=== PATIENT | female | born 1960 | race Caucasian/White ===

== ENCOUNTER 2021-02-14 07:00 | Inpatient (IN) ==
[2021-02-14] MEDS ORDERED: 0.9 % Sodium Chloride 1,000 ML IVC ONE (07:09)
[2021-02-14] MEDS ORDERED: Ondansetron 4 MG/2 ML VIAL IVP ONE (07:09)
[2021-02-14] MEDS ORDERED: Isovue-370 500 ML BOTTLE IVP ONE (07:10)
[2021-02-14] MEDS ORDERED: *HR* FentaNYL (PF) 100 MCG/2 ML VIAL IVP ONE (07:10)
[2021-02-14 07:51] LABS: Basophils % 0.1 %; Eosinophils % 0.2 %; Hematocrit 43.5 % (35.3-44.9); Hemoglobin 13.8 g/dL (11.5-15.4); Immature Granulocytes % 0.2 % (0-4); Lymphocytes # 0.9 K/mcL (0.6-4.6); Lymphocytes % 10.4 %; Mean Corpuscular HGB Conc 31.7 g/dL (31.6-35.5); Mean Corpuscular Hemoglobin 27.5 pg (28.0-33.3); Mean Corpuscular Volume 86.8 fL (83.0-100.0); Mean Platelet Volume 11.5 fL (9.4-12.4); Monocytes # 0.4 K/mcL (0.0-1.3); Monocytes % 4.2 %; Neutrophils # 7.3 K/mcL (1.6-8.9); Platelet Count 426 K/mcL (140-400); Red Blood Count 5.01 M/mcL (3.82-4.97); Red Cell Distribution Width 14.8 % (11.5-14.5); Segmented Neutrophils % 84.9 %; White Blood Count 8.6 K/mcL (4.3-11.1)
[2021-02-14 08:16] LABS: Albumin 3.7 g/dL (3.5-5.7); Albumin/Globulin Ratio 1.2 (1.1-2.2); Bilirubin,Indirect 0.3 mg/dL (0.0-1.0); Bilirubin,Total 0.3 mg/dL (0.3-1.0); Calcium 9.4 mg/dL (8.6-10.3); Globulin 3.2 g/dL (2.4-3.5); Potassium 4.6 mEq/L (3.5-5.1); Total Protein 6.9 g/dL (6.4-8.9); Troponin I 0.1 ng/mL (< 0.04)
[2021-02-14] MEDS ORDERED: Aspirin 81 MG TAB.CHEW PO ONE (08:19)
[2021-02-14 08:27] LABS: Amorphous Sediment,Urine Few per hpf (None-Few); Bacteria,Urine Few per hpf (None-Few); Bilirubin,Urine Negative (Negative); Blood,Urine Small (Negative); Clarity,Urine Turbid (Clear); Color,Urine Yellow (Yellow); Glucose,Urine (UA) 70 mg/dL (Normal); Ketones,Urine Negative (Negative); Leukocyte Esterase,Urine Negative (Negative); Mucus,Urine Few per lpf (None-Few); Nitrite,Urine Negative (Negative); Protein,Urine >=300 mg/dL (Neg-Trace); Specific Gravity,Urine 1.022 (1.010-1.025); Squamous Epithelial Cell,Urine Few per hpf (None-Few); Urobilinogen,Urine Normal (Normal)
[2021-02-14] MEDS ORDERED: Vancomycin 1,750 MG/517.5 ML IV.SOLN IVPB ONE (09:43)
[2021-02-14] MEDS ORDERED: Cefepime HCl 1,000 MG in 0.9 % Sodium Chloride Mini Bag 100 ML IVPB ONE (09:43)
[2021-02-14] MEDS ORDERED: Naloxone 0.4 MG/ML INJ IVP PRN ×2 (10:22→15:26)
[2021-02-14] MEDS ORDERED: *HR* HYDROmorphone (PF) 1 MG/ML SYRINGE IVP PRN ×2 (10:24→12:04)
[2021-02-14] MEDS ORDERED: 0.9 % Sodium Chloride 1,000 ML IVC SCH (10:30)
[2021-02-14] MEDS ORDERED: Lidocaine -MPF 2% 2 ML VIAL ONE (12:04)
[2021-02-14] MEDS ORDERED: *HR* Meperidine 25 MG/ML SYRINGE IVP PRN (12:04)
[2021-02-14] MEDS ORDERED: Ondansetron 4 MG/2 ML VIAL IVP PRN (12:04)
[2021-02-14] MEDS ORDERED: *HR* FentaNYL (PF) 100 MCG/2 ML VIAL ONE ×2 (12:04→13:28)
[2021-02-14] MEDS ORDERED: *HR* Rocuronium Bromide 50 MG/5 ML VIAL ONE (12:05)
[2021-02-14] MEDS ORDERED: *HR* Succinylcholine 200 MG/10 ML VIAL IVP ONE (12:08)
[2021-02-14] MEDS ORDERED: *HR* Propofol 200 MG/20 ML VIAL IVP ONE (12:08)
[2021-02-14] MEDS ORDERED: *HR* Midazolam HCl 2 MG/2 ML VIAL ONE (12:08)
[2021-02-14] MEDS ORDERED: EPHEDrine 50 MG/ML VIAL ONE (13:02)
[2021-02-14] MEDS ORDERED: *HR* PHENYLEPHRINE 1,000 MCG/10 ML SYRINGE IVP ONE (13:14)
[2021-02-14] MEDS ORDERED: Neostigmine Methylsulfate 3 MG/3 ML SYRINGE ONE (13:34)
[2021-02-14] MEDS ORDERED: Ondansetron 4 MG/2 ML VIAL ONE (13:34)
[2021-02-14] MEDS ORDERED: Dexamethasone 4 MG/ML VIAL ONE (13:34)
[2021-02-14] MEDS ORDERED: Acetaminophen IV 1,000 MG/100 ML BAG IVPB ONE (13:50)
[2021-02-14] MEDS ORDERED: *HR* Heparin 5,000 UNIT/ML VIAL SQ SCH (14:00)
[2021-02-14] MEDS ORDERED: MetroNIDAZOLE 500 MG/100 ML 500 MG/100 ML BAG IVPB SCH (16:00)
[2021-02-14] MEDS: MetroNIDAZOLE 500 MG/100 ML 500 MG/100 ML BAG IVPB SCH (16:45)
[2021-02-14] MEDS: 0.9 % Sodium Chloride 1,000 ML IVC SCH (18:05)
[2021-02-14] MEDS: *HR* HYDROmorphone (PF) 1 MG/ML SYRINGE IVP PRN (20:00)
[2021-02-14] MEDS: *HR* Heparin 5,000 UNIT/ML VIAL SQ SCH (22:50)
[2021-02-15] MEDS: MetroNIDAZOLE 500 MG/100 ML 500 MG/100 ML BAG IVPB SCH ×4 (01:00→23:14)
[2021-02-15] MEDS: *HR* HYDROmorphone (PF) 1 MG/ML SYRINGE IVP PRN (02:16)
[2021-02-15 04:34] LABS: Basophils % 0.2 %; Hematocrit 36.7 % (35.3-44.9); Immature Granulocytes % 0.4 % (0-4); Lymphocytes # 1.6 K/mcL (0.6-4.6); Lymphocytes % 10.7 %; Mean Corpuscular HGB Conc 31.9 g/dL (31.6-35.5); Mean Corpuscular Volume 87.8 fL (83.0-100.0); Mean Platelet Volume 11.2 fL (9.4-12.4); Monocytes # 0.6 K/mcL (0.0-1.3); Monocytes % 3.8 %; Neutrophils # 12.4 K/mcL (1.6-8.9); Platelet Count 464 K/mcL (140-400); Red Blood Count 4.18 M/mcL (3.82-4.97); Red Cell Distribution Width 15.2 % (11.5-14.5); Segmented Neutrophils % 84.9 %
[2021-02-15 04:36] LABS: Hemoglobin 11.7 g/dL (11.5-15.4); White Blood Count 14.6 K/mcL (4.3-11.1)
[2021-02-15 04:51] LABS: Calcium 8.3 mg/dL (8.6-10.3); Potassium 5.1 mEq/L (3.5-5.1)
[2021-02-15] MEDS: 0.9 % Sodium Chloride 1,000 ML IVC SCH (05:18)
[2021-02-15] MEDS: *HR* Heparin 5,000 UNIT/ML VIAL SQ SCH ×2 (05:20→21:21)
[2021-02-15] MEDS ORDERED: Dextrose Gel 15 GM/37.5 ML TUBE PO PRN ×2 (08:00)
[2021-02-15] MEDS ORDERED: D5% in Water 1,000 ML IVC PRN (08:00)
[2021-02-15] MEDS ORDERED: *HR* Dextrose 50 % in Water (Vial) 50 ML VIAL IVP PRN (08:00)
[2021-02-15] MEDS ORDERED: D5% in Water 1,000 ML IVC ONE (08:09)
[2021-02-15] MEDS ORDERED: 0.9 % Sodium Chloride 250 ML IVC ONE (08:18)
[2021-02-15] MEDS: D5% in Lactated Ringers 1,000 ML IVC SCH ×3 (08:21→21:20)
[2021-02-15 11:42] LABS: ABG Base Excess -7 mEq/L (-2 to 3); ABG HCO3 18 mEq/L (21-27); ABG Oxygen Saturation 91 % (95-98); ABG PCO2 31 mmHg (35-45); ABG PH 7.37 pH Units (7.32-7.45); ABG PO2 61 mmHg (85-104); ABG TCO2 19 mEq/L (20-26)
[2021-02-15] MEDS: Insulin LISPRO 300 UNITS/3 ML VIAL SUBQ SCH ×2 (12:03→18:00)
[2021-02-15] MEDS ORDERED: Perflutren Lipid Microsphere 1.3 ML in 0.9 % Sodium Chloride 8.7 ML IVP PRN (12:35)
[2021-02-15] MEDS: Ipratropium/Albuterol Neb 3 ML IH SCH ×3 (15:51→23:32)
[2021-02-16] MEDS: Insulin LISPRO 300 UNITS/3 ML VIAL SUBQ SCH ×5 (00:07→23:58)
[2021-02-16] MEDS: Acetaminophen IV 1,000 MG/100 ML BAG IVPB SCH ×5 (00:26→23:29)
[2021-02-16] MEDS: Ipratropium/Albuterol Neb 3 ML IH SCH ×5 (04:00→19:30)
[2021-02-16 06:14] LABS: Basophils % 0.1 %; Eosinophils # 0.1 K/mcL (0.0-0.6); Eosinophils % 0.4 %; Hematocrit 31.6 % (35.3-44.9); Immature Granulocytes % 0.6 % (0-4); Lymphocytes # 1.5 K/mcL (0.6-4.6); Lymphocytes % 10.9 %; Mean Corpuscular HGB Conc 31.6 g/dL (31.6-35.5); Mean Corpuscular Hemoglobin 28.2 pg (28.0-33.3); Mean Corpuscular Volume 89.3 fL (83.0-100.0); Mean Platelet Volume 11.3 fL (9.4-12.4); Monocytes # 0.5 K/mcL (0.0-1.3); Monocytes % 3.6 %; Neutrophils # 11.6 K/mcL (1.6-8.9); Platelet Count 401 K/mcL (140-400); Red Blood Count 3.54 M/mcL (3.82-4.97); Red Cell Distribution Width 15.1 % (11.5-14.5); Segmented Neutrophils % 84.4 %; White Blood Count 13.7 K/mcL (4.3-11.1)
[2021-02-16 06:34] LABS: Magnesium 1.4 mg/dL (1.6-2.6); Phosphorous 4.6 mg/dL (2.7-4.5)
[2021-02-16 08:27] LABS: Calcium 8.5 mg/dL (8.6-10.3); Potassium 4.3 mEq/L (3.5-5.1)
[2021-02-16] MEDS: amLODIPine 5 MG TABLET PO SCH (08:37)
[2021-02-16] MEDS: MetroNIDAZOLE 500 MG/100 ML 500 MG/100 ML BAG IVPB SCH ×3 (08:37→23:30)
[2021-02-16] MEDS: Aspirin Enteric Coated 81 MG Tablet PO SCH (08:37)
[2021-02-16] MEDS: *HR* Heparin 5,000 UNIT/ML VIAL SQ SCH ×2 (08:38→21:32)
[2021-02-16] MEDS: Pantoprazole 40 MG VIAL IVP SCH (08:47)
[2021-02-16] MEDS: BISOPROLOL FUMARATE 10 MG PO SCH (09:15)
[2021-02-16] MEDS ORDERED: *HR* Metoprolol 5 MG/5 ML VIAL IVP ONE (10:07)
[2021-02-16] MEDS ORDERED: Ringers Solution, Lactated 500 ML IVC SCH (17:00)
[2021-02-16] MEDS ORDERED: *HR* Labetalol 20 MG/4 ML SYRINGE IVP PRN (17:16)
[2021-02-17] MEDS: Ipratropium/Albuterol Neb 3 ML IH SCH ×7 (00:22→23:45)
[2021-02-17 04:31] LABS: Basophils % 0.1 %; Eosinophils # 0.3 K/mcL (0.0-0.6); Eosinophils % 2.1 %; Hematocrit 31.1 % (35.3-44.9); Hemoglobin 9.6 g/dL (11.5-15.4); Immature Granulocytes % 0.7 % (0-4); Lymphocytes # 1.7 K/mcL (0.6-4.6); Lymphocytes % 11.8 %; Mean Corpuscular HGB Conc 30.9 g/dL (31.6-35.5); Mean Corpuscular Hemoglobin 27.4 pg (28.0-33.3); Mean Corpuscular Volume 88.9 fL (83.0-100.0); Monocytes # 0.5 K/mcL (0.0-1.3); Monocytes % 3.5 %; Neutrophils # 11.8 K/mcL (1.6-8.9); Platelet Count 461 K/mcL (140-400); Red Cell Distribution Width 15.3 % (11.5-14.5); Segmented Neutrophils % 81.8 %; White Blood Count 14.5 K/mcL (4.3-11.1)
[2021-02-17 04:49] LABS: Magnesium 1.9 mg/dL (1.6-2.6); Phosphorous 3.8 mg/dL (2.7-4.5)
[2021-02-17] MEDS: Acetaminophen IV 1,000 MG/100 ML BAG IVPB SCH ×4 (05:09→21:50)
[2021-02-17] MEDS: Insulin LISPRO 300 UNITS/3 ML VIAL SUBQ SCH ×3 (06:10→18:20)
[2021-02-17] MEDS ORDERED: Ringers Solution, Lactated 1,000 ML IVC SCH (09:15)
[2021-02-17] MEDS ORDERED: Ondansetron 4 MG/2 ML VIAL IVP PRN (09:36)
[2021-02-17] MEDS: Pantoprazole 40 MG VIAL IVP SCH (09:40)
[2021-02-17] MEDS: *HR* Heparin 5,000 UNIT/ML VIAL SQ SCH ×2 (09:40→21:51)
[2021-02-17] MEDS: MetroNIDAZOLE 500 MG/100 ML 500 MG/100 ML BAG IVPB SCH ×2 (09:42→16:06)
[2021-02-18] MEDS: Insulin LISPRO 300 UNITS/3 ML VIAL SUBQ SCH ×5 (00:05→20:47)
[2021-02-18] MEDS: MetroNIDAZOLE 500 MG/100 ML 500 MG/100 ML BAG IVPB SCH ×3 (00:08→16:10)
[2021-02-18] MEDS: Ipratropium/Albuterol Neb 3 ML IH SCH ×5 (03:27→19:57)
[2021-02-18] MEDS: Acetaminophen IV 1,000 MG/100 ML BAG IVPB SCH ×4 (05:20→22:49)
[2021-02-18 06:37] LABS: Basophils % 0.1 %; Eosinophils # 0.3 K/mcL (0.0-0.6); Eosinophils % 3.3 %; Hematocrit 30.3 % (35.3-44.9); Hemoglobin 9.5 g/dL (11.5-15.4); Immature Granulocytes % 0.5 % (0-4); Lymphocytes # 1.4 K/mcL (0.6-4.6); Lymphocytes % 13.9 %; Mean Corpuscular HGB Conc 31.4 g/dL (31.6-35.5); Mean Corpuscular Volume 89.4 fL (83.0-100.0); Mean Platelet Volume 10.6 fL (9.4-12.4); Monocytes # 0.6 K/mcL (0.0-1.3); Monocytes % 6.3 %; Neutrophils # 7.5 K/mcL (1.6-8.9); Platelet Count 502 K/mcL (140-400); Red Blood Count 3.39 M/mcL (3.82-4.97); Red Cell Distribution Width 15.1 % (11.5-14.5); Segmented Neutrophils % 75.9 %; White Blood Count 9.9 K/mcL (4.3-11.1)
[2021-02-18 07:04] LABS: Calcium 9.2 mg/dL (8.6-10.3); Magnesium 1.7 mg/dL (1.6-2.6); Phosphorous 2.9 mg/dL (2.7-4.5); Potassium 3.6 mEq/L (3.5-5.1)
[2021-02-18] MEDS: Pantoprazole 40 MG VIAL IVP SCH (07:44)
[2021-02-18] MEDS: *HR* Heparin 5,000 UNIT/ML VIAL SQ SCH ×2 (07:44→20:44)
[2021-02-18] MEDS: Methyl Salicylate/Menthol 57 APPL/57 GM TUBE TP PRN ×2 (16:14→23:28)
[2021-02-19] MEDS: Ipratropium/Albuterol Neb 3 ML IH SCH ×7 (00:21→23:45)
[2021-02-19] MEDS: MetroNIDAZOLE 500 MG/100 ML 500 MG/100 ML BAG IVPB SCH ×3 (00:23→17:27)
[2021-02-19] MEDS: *HR* HYDROmorphone (PF) 1 MG/ML SYRINGE IVP PRN (04:15)
[2021-02-19 05:39] LABS: Basophils % 0.2 %; Eosinophils # 0.2 K/mcL (0.0-0.6); Eosinophils % 1.7 %; Hematocrit 28.6 % (35.3-44.9); Immature Granulocytes % 0.5 % (0-4); Lymphocytes # 1.2 K/mcL (0.6-4.6); Lymphocytes % 10.7 %; Mean Corpuscular HGB Conc 31.5 g/dL (31.6-35.5); Mean Corpuscular Hemoglobin 27.4 pg (28.0-33.3); Mean Corpuscular Volume 87.2 fL (83.0-100.0); Mean Platelet Volume 10.2 fL (9.4-12.4); Monocytes # 0.8 K/mcL (0.0-1.3); Monocytes % 7.7 %; Neutrophils # 8.5 K/mcL (1.6-8.9); Platelet Count 524 K/mcL (140-400); Red Blood Count 3.28 M/mcL (3.82-4.97); Red Cell Distribution Width 15.3 % (11.5-14.5); Segmented Neutrophils % 79.2 %; White Blood Count 10.8 K/mcL (4.3-11.1)
[2021-02-19] MEDS: Acetaminophen IV 1,000 MG/100 ML BAG IVPB SCH (06:20)
[2021-02-19 07:49] LABS: BUN/Creatinine Ratio 40 (6-26); Blood Urea Nitrogen 42 mg/dL (6-20); Carbon Dioxide 19 mEq/L (23-29); Chloride 109 mEq/L (98-107); Glucose 248 mg/dL (70-105); Magnesium 1.9 mg/dL (1.6-2.6); Osmolality,Calculated 301 (280-300); Phosphorous 2.4 mg/dL (2.7-4.5); Potassium 4.1 mEq/L (3.5-5.1); Sodium 136 mEq/L (136-145); eGFR For African Americans > 60 (> 60); eGFR For Non-African Americans 53 (> 60)
[2021-02-19] MEDS ORDERED: Metoprolol XL (24 HR) Succ 25 MG TAB.ER.24H PO SCH (09:00)
[2021-02-19] MEDS: amLODIPine 5 MG TABLET PO SCH (09:40)
[2021-02-19] MEDS: *HR* Heparin 5,000 UNIT/ML VIAL SQ SCH ×2 (09:40→20:25)
[2021-02-19] MEDS: Insulin LISPRO 300 UNITS/3 ML VIAL SUBQ SCH ×4 (09:40→20:25)
[2021-02-19] MEDS: Aspirin Enteric Coated 81 MG Tablet PO SCH (09:40)
[2021-02-19] MEDS ORDERED: Ketorolac 15 MG/ML VIAL IVP ONE (17:13)
[2021-02-19] MEDS ORDERED: Dexamethasone 4 MG/ML VIAL IVP ONE (17:14)
[2021-02-19] MEDS ORDERED: Insulin DETEMIR 100 UNIT/ML X5UNITS SUBQ SCH (21:00)
[2021-02-20] MEDS: MetroNIDAZOLE 500 MG/100 ML 500 MG/100 ML BAG IVPB SCH ×2 (00:17→07:52)
[2021-02-20] MEDS: Methyl Salicylate/Menthol 57 APPL/57 GM TUBE TP PRN ×2 (00:22→21:09)
[2021-02-20] MEDS: Ipratropium/Albuterol Neb 3 ML IH SCH ×6 (03:59→23:02)
[2021-02-20 05:21] LABS: Basophils % 0.3 %; Eosinophils # 0.2 K/mcL (0.0-0.6); Eosinophils % 1.5 %; Hemoglobin 9.1 g/dL (11.5-15.4); Immature Granulocytes % 0.9 % (0-4); Lymphocytes % 16.3 %; Mean Corpuscular HGB Conc 31.4 g/dL (31.6-35.5); Mean Corpuscular Hemoglobin 27.6 pg (28.0-33.3); Mean Corpuscular Volume 87.9 fL (83.0-100.0); Mean Platelet Volume 10.7 fL (9.4-12.4); Monocytes # 0.9 K/mcL (0.0-1.3); Monocytes % 7.3 %; Neutrophils # 8.9 K/mcL (1.6-8.9); Platelet Count 484 K/mcL (140-400); Red Cell Distribution Width 14.9 % (11.5-14.5); Segmented Neutrophils % 73.7 %
[2021-02-20] MEDS ORDERED: Saline Nasal Spray 44 ML BOTTLE NS PRN (05:30)
[2021-02-20 05:44] LABS: Calcium 8.9 mg/dL (8.6-10.3); Magnesium 1.6 mg/dL (1.6-2.6); Phosphorous 2.8 mg/dL (2.7-4.5); Potassium 4.3 mEq/L (3.5-5.1)
[2021-02-20] MEDS: *HR* Heparin 5,000 UNIT/ML VIAL SQ SCH ×2 (07:52→21:07)
[2021-02-20] MEDS: amLODIPine 5 MG TABLET PO SCH (07:53)
[2021-02-20] MEDS: Insulin LISPRO 300 UNITS/3 ML VIAL SUBQ SCH ×7 (08:16→21:09)
[2021-02-20] MEDS ORDERED: Insulin DETEMIR 100 UNIT/ML X5UNITS SUBQ SCH (09:00)
[2021-02-20] MEDS: BISOPROLOL FUMARATE 10 MG PO SCH (09:41)
[2021-02-20] MEDS: Aspirin Enteric Coated 81 MG Tablet PO SCH (13:20)
[2021-02-20] MEDS: metroNIDAZOLE 500 MG TABLET PO SCH ×2 (17:40→21:07)
[2021-02-20] MEDS: Insulin DETEMIR 100 UNIT/ML X5UNITS SUBQ SCH (21:06)
[2021-02-20] MEDS: *HR* HYDROcodone/Acet 5/325 mg TABLET PO PRN (21:07)
[2021-02-20] MEDS: Sennosides/Docusate Sodium TABLET PO SCH (21:08)
[2021-02-21] MEDS: Ipratropium/Albuterol Neb 3 ML IH SCH ×2 (04:10→07:29)
[2021-02-21 04:50] LABS: Basophils % 0.2 %; Eosinophils # 0.2 K/mcL (0.0-0.6); Eosinophils % 2.2 %; Hematocrit 29.2 % (35.3-44.9); Hemoglobin 9.3 g/dL (11.5-15.4); Immature Granulocytes % 1.3 % (0-4); Lymphocytes % 20.3 %; Mean Corpuscular HGB Conc 31.8 g/dL (31.6-35.5); Mean Corpuscular Hemoglobin 28.4 pg (28.0-33.3); Mean Platelet Volume 10.3 fL (9.4-12.4); Monocytes % 9.9 %; Neutrophils # 6.5 K/mcL (1.6-8.9); Platelet Count 517 K/mcL (140-400); Red Blood Count 3.28 M/mcL (3.82-4.97); Red Cell Distribution Width 14.8 % (11.5-14.5); Segmented Neutrophils % 66.1 %; White Blood Count 9.9 K/mcL (4.3-11.1)
[2021-02-21 05:09] LABS: Calcium 9.1 mg/dL (8.6-10.3); Magnesium 1.5 mg/dL (1.6-2.6); Phosphorous 3.3 mg/dL (2.7-4.5); Potassium 4.7 mEq/L (3.5-5.1)
[2021-02-21] MEDS: Aspirin Enteric Coated 81 MG Tablet PO SCH (08:18)
[2021-02-21] MEDS: metroNIDAZOLE 500 MG TABLET PO SCH (08:19)
[2021-02-21] MEDS: amLODIPine 5 MG TABLET PO SCH (08:19)
[2021-02-21] MEDS: Insulin LISPRO 300 UNITS/3 ML VIAL SUBQ SCH ×2 (08:19)
[2021-02-21] MEDS: Sennosides/Docusate Sodium TABLET PO SCH (08:19)
[2021-02-21] MEDS: *HR* Heparin 5,000 UNIT/ML VIAL SQ SCH (08:19)
[2021-02-21] MEDS: BISOPROLOL FUMARATE 10 MG PO SCH (08:20)
[2021-02-21] MEDS: Insulin DETEMIR 100 UNIT/ML X5UNITS SUBQ SCH (08:20)
[2021-02-21] MEDS: *HR* HYDROcodone/Acet 5/325 mg TABLET PO PRN (09:32)
[2021-02-21] MEDS ORDERED: Saline Nasal Spray 44 ML BOTTLE NS PRN (09:44)
[2021-02-21 10:21] VITALS: BP 146/76
[2021-02-21] MEDS ORDERED: Ipratropium/Albuterol Neb 3 ML IH PRN (10:29)
== END 2021-02-21 12:33 | DRG 329 ==
LOC: EMEROOARM 07:00 → CDU 07:00 → SUATTDRO 12:01 → 3ANU 18:52
PROVIDERS: ADMIT Internal Medicine; ATTEND Internal Medicine